=== PATIENT | male | born 1965 | race American Indian/Alaskan Native ===

== ENCOUNTER 2018-03-16 04:38 | Emergency (ER) | payer BC, OTHER ==
[~2018-03-16] VITALS: Ht 172.7 cm; Wt 127.0 kg
[~2018-03-16 04:38] MED LIST: FLEXERIL10 MG PO; TRAMADOL HCL50 MG PO
[2018-03-16] MEDS ORDERED: PEPTO-BISM262 MG/15 PO (04:53)
== END 2018-03-16 07:10 | disposition home or self-care (01) ==
LOC: ED 04:38
DX: R73.9 Hyperglycemia, unspecified (principal); E87.1 Hypo-osmolality and hyponatremia; E78.5 Hyperlipidemia, unspecified; Z91.19 Patient's noncompliance with other medical treatment and regimen; I10 Essential (primary) hypertension; F17.200 Nicotine dependence, unspecified, uncomplicated
CPT/HCPCS: 80053; 80061; 81001; 83690; 85025; 99284

== ENCOUNTER 2025-01-25 08:22 | Emergency (ER) | payer OTHER ==
[~2025-01-25] VITALS: Ht 170.2 cm; Wt 107.0 kg
[~2025-01-25 08:22] MED LIST changes: +PEPTO-BISM262 MG/15 PO
[2025-01-25] MEDS ORDERED: GLIPIZIDE10 MG PO (08:33)
[2025-01-25] MEDS ORDERED: FENOFIBRATE40 MG PO (08:33)
[2025-01-25] MEDS ORDERED: LISINOPRIL40 MG PO (08:33)
[2025-01-25] MEDS ORDERED: CEPHALEXIN500 M1 PO (09:10)
[2025-01-25] MEDS ORDERED: CEPHALEXIN MONOHYDRATE 500 MG CAP PO ONE (09:15)
[2025-01-25] MEDS ORDERED: CEPHALEXIN MONOHYDRATE 500 MG HOME.PACK PO ONE (09:15)
[2025-01-25 09:35] VITALS: BP 122/72
== END 2025-01-25 09:30 | disposition home or self-care (01) ==
LOC: ED 08:22
DX: L03.116 Cellulitis of left lower limb (principal); I10 Essential (primary) hypertension; E11.9 Type 2 diabetes mellitus without complications; Z87.891 Personal history of nicotine dependence
CPT/HCPCS: 99283; A9270

== ENCOUNTER 2025-04-29 13:44 | Emergency (ER) | payer OTHER ==
[~2025-04-29] VITALS: Ht 170.2 cm; Wt 102.1 kg
[~2025-04-29 13:44] MED LIST changes: +CEPHALEXIN500 M1 PO; +FENOFIBRATE40 MG PO; +GLIPIZIDE10 MG PO; +LISINOPRIL40 MG PO
[2025-04-29] MEDS ORDERED: ACETAMINOPHEN 500 MG TAB PO ONE (14:45)
[2025-04-29] MEDS ORDERED: IBUPROFEN 600 MG TAB PO ONE (14:45)
[2025-04-29] MEDS ORDERED: HYDROCODON-ACE1 EA11 PO (15:17)
[2025-04-29 15:28] VITALS: BP 142/84
== END 2025-04-29 15:30 | disposition home or self-care (01) ==
LOC: ED 13:44
DX: S20.212A Contusion of left front wall of thorax, initial encounter (principal); W18.09XA Striking against other object with subsequent fall, initial encounter; I10 Essential (primary) hypertension; E11.9 Type 2 diabetes mellitus without complications; Z87.891 Personal history of nicotine dependence; Z79.84 Long term (current) use of oral hypoglycemic drugs; Z79.899 Other long term (current) drug therapy
CPT/HCPCS: 71046; 99283-25; A9270